=== PATIENT | male | born 1990 | race Caucasian/White ===

== ENCOUNTER 2016-12-14 16:50 | Emergency (ER) | payer SELFPAY ==
[~2016-12-14] VITALS: Ht 175.3 cm; Wt 103.7 kg
[~2016-12-14 16:50] MED LIST: FLONASE16 G1 BOTH NARES; MUCUS ER600 MG PO; NAPROSYN500 MG PO; NOHOMEMEDS; ZOFRAN ODT4 MG PO
[2016-12-14 17:36] LABS: HEMATOCRIT 44.2 % (38.0-50.0); MCH 29.5 PG (29.0-34.0); MCHC 35.3 G/DL (30.0-36.0); MCV 83.7 FL (86-99); MEAN PLAT.VOLUME 9.6 uM^3 (9.0-12.4); PLATELET COUNT 329 K/uL (156-360); RBC DIS.WIDTH-CV 12.7 % (11.8-14.6); RBC DIS.WIDTH-SD 38.5 % (39-53); RED BLOOD COUNT 5.28 M/uL (4.00-5.50); WHITE BLOOD COUNT 10.1 K/uL (4.1-10.2)
[2016-12-14 17:48] LABS: CHLORIDE 110 mEq/L (99-109); POTASSIUM 3.9 mEq/L (3.7-5.4); SODIUM 141 mEq/L (136-147)
[2016-12-14 17:49] LABS: GLUCOSE 105 mg/dL (70-99)
[2016-12-14 17:51] LABS: ANION GAP 7 MEQ/L (2-14)
[2016-12-14 17:53] LABS: GFR ESTIMATE (CALCULATED) > 59 mL/min/
[2016-12-14 17:54] LABS: UREA NITROGEN (BUN) 10 mg/dL (9-23)
[2016-12-14] MEDS ORDERED: ZITHROMAX Z-PA250 MG PO (18:57)
[2016-12-14 19:19] VITALS: BP 119/79
== END 2016-12-14 19:26 | disposition home or self-care (01) ==
LOC: EME 16:50
DX: J20.9 Acute bronchitis, unspecified (principal); Z87.891 Personal history of nicotine dependence
CPT/HCPCS: 71020; 80048; 85027; 99281; 99284

== ENCOUNTER 2017-06-01 21:44 | Emergency (ER) | payer OTHER ==
[~2017-06-01] VITALS: Ht 175.3 cm; Wt 106.9 kg
[~2017-06-01 21:44] MED LIST changes: +ZITHROMAX Z-PA250 MG PO
[2017-06-01 21:51] VITALS: BP 150/101
[2017-06-01 22:57] LABS: HEMATOCRIT 41.6 % (38.0-50.0); MCH 30.1 PG (29.0-34.0); MCHC 36.1 G/DL (30.0-36.0); MCV 83.5 FL (86-99); PLATELET COUNT 319 K/uL (156-360); RBC DIS.WIDTH-CV 12.7 % (11.8-14.6); RBC DIS.WIDTH-SD 38.5 % (39-53); RED BLOOD COUNT 4.98 M/uL (4.00-5.50); WHITE BLOOD COUNT 10.5 K/uL (4.1-10.2)
[2017-06-01 23:08] LABS: ALBUMIN 4.2 g/dL (3.2-4.8); CHLORIDE 105 mEq/L (99-109); POTASSIUM 4.3 mEq/L (3.7-5.4); SODIUM 142 mEq/L (136-147)
[2017-06-01 23:11] LABS: GLUCOSE 80 mg/dL (70-99); TOTAL PROTEIN 7.6 g/dL (6.4-8.3)
[2017-06-01 23:13] LABS: TOTAL BILIRUBIN 0.9 mg/dL (0.0-1.0)
[2017-06-01 23:14] LABS: ALKALINE PHOSPHATASE 111 IU/L (3-129); GFR ESTIMATE (CALCULATED) > 59 mL/min/ (58.99-99999)
[2017-06-01 23:15] LABS: UREA NITROGEN (BUN) 17 mg/dL (9-23)
[2017-06-01 23:16] LABS: AST (GOT) 34 IU/L (2-34)
[2017-06-01 23:17] LABS: ALT (GPT) 45 IU/L (3-49)
[2017-06-02] MEDS ORDERED: MOTRIN800 MG PO (00:37)
[2017-06-02] MEDS ORDERED: PERCOCET 5/31 TABLET PO (00:37)
== END 2017-06-02 01:08 | disposition home or self-care (01) ==
LOC: EME 21:44
PROVIDERS: Nurse Practitioner Family
DX: S39.011A Strain of muscle, fascia and tendon of abdomen, initial encounter (principal); X50.9XXA Other and unspecified overexertion or strenuous movements or postures, initial encounter; Y93.72 Activity, wrestling; T80.818A Extravasation of other vesicant agent, initial encounter; R16.0 Hepatomegaly, not elsewhere classified; Z87.891 Personal history of nicotine dependence
CPT/HCPCS: 74177; 80053; 85027; 99281; 99284